=== PATIENT | male | born 1995 | race Caucasian/White ===

== ENCOUNTER 2025-01-16 08:00 | Outpatient (CLI) | payer BC, SELFPAY ==
--- OUTSIDE RECORDS SUMMARY | 2023-01-18 03:45 | XMS_ITS | Continuity of Care Document ---
Author Organization [facility] Address [address] [place] [address] Phone Care Team Providers Care Cardiac Rehab Nurse Name Role Phone Reeg Lyla RAM Unavailable Unavailable Medications Medication Instructions Dosage Effective Dates (start - stop) Status Comments ALPRAZOLAM (unknown strength) take 1 tablet by oral route 3 times every day Not Available - Active DRIZALMA SPRINKLE (unknown strength) take 1 capsule by oral route every day Not Available - Active Procedures Procedure Date RADEX FOOT COMPL MINIMUM 3 VIEWS 2022 POSTOP FOLLOW-UP VISIT Post Op Shoe OFFICE/OUTPATIENT VISIT NEW Advance Directives Directive Yes / No Effective Date File Name No Information Encounters Encounter Description Practice Location Reason(s) For Visit Diagnoses Date Provider Providers Copied on Encounter [facility] , [address], [place], [address], [place] tel:[phone] [facility] [place] Closed nondisplaced fracture of fifth metatarsal bone of left foot with routine healing, subsequent encounterPain in left foot 3 Reeg Lyla. [address], [place], [place], [id number] . tel: [phone] Referring Provider: Carlos Constantino, [address] [place] [address] [address], [place], [address]. tel:[phone] OFFICE/OUTPAT IENT VISIT NEW [facility] , [address], [place], [address], [place] tel:[phone] [facility] [place] Body mass index [BMI] 50.0-59.9, adultClosed nondisplaced fracture of fifth metatarsal bone of left foot, initial encounter 3 Bo Robertson [address], [place], [place], [id number] . tel: [phone] Referring Provider: Wilber Khan [facility] [address], [place], [address]. tel:[phone] Family History Family Member Type Diagnosis Age At Onset Mother Problem Alive and well Sister Problem Alive and well Father Problem Alive and well Payers Payer name Insurance type Covered constitution party ID Authoriza tirenetta(s) Blue Access PPO E2 OT [id number] Social History Type Description Quantity Date Captured Comments Alcohol Use Details Unknown Caffeine Use Details Unknown Tobacco Use Status No Information Smoking Status No Information Sex Male Chief Complaint And Reason For Visit No Information Reason For Referral Reason For Referral No Information Plan Of Treatment Date Type Action Status Referral Ordered: RADEX FOOT COMPL MINIMUM 3 VIEWS LT ordered History Of Present Illness Encounter Date Complaint History Of Prese nt Illness No Information Functional Status Date Functional Assessmen t No Information Instructions Date Instruction Additional Infor mation Report increased iman n, swelling, numbness or discoloration. Related to Closed nondisplaced fracture of fifth metatarsal bone of left foot with routine healing, subsequent encounter Use as directed Related to Close d nondisplaced fracture of fifth metatarsal bone of left foot with routine healing, subsequent encounter Giving encouragement to exercise Related to Body mass index [BMI] 50.0-59.9, adult Assessments Type Assessment Date assessment Closed nondisplaced fracture of fifth metatarsal bone of left foot with routine healing, subsequent encounter assessment Pain in left foot Patient Care Teams Name Effective Dates (start - stop) Status Members No Information
--- OUTSIDE RECORDS SUMMARY | 2024-04-21 08:45 | XMS_ITS | Continuity of Care Document ---
Author Organization [facility] Address [address] [place] [address] Phone Care Team Providers Care Color Shop Helper Name Role Phone Herbert Shah MD, MD Unavailable Unavailable Allergies, Adverse Reactions, Alerts Substance Reaction Status Criticality No Known Allergies Active No Inform ation Medications Medication Instructions Dosage Effective Dates (start - stop) Status Comments meloxicam 15 mg tablet take 1 tablet by oral route every day 1 po daily 15 MG - Active Voltaren Arthritis Pain 1 % topical gel - Active diazepam 10 mg tablet - Active duloxetine 20 mg capsule,delayed release - Active Procedures Procedure Date X-ray exam shoulder complete, minimum 2 views Office/outpatient visit,est, mod 2023 X-ray exam shoulder complete, minimum 2 views Office/outpatient visit,est, mod 2023 MRI Upper extr joint, w/o contrast X-ray exam shoulder complete, minimum 2 views BMI Documented Above Normal Limit F/U Pl an Doc Office/outpatient visit,new, mod 2023 Advance Directives Directive Yes / No Effective Date File Name No Information Encounters Encounter Description Practice Location Reason(s) For Visit Diagnoses Date Provider Providers Copied on Encounter Office/outpat ient visit,est, mod [facility], [address], [place], [place], [id number], [place] tel:[phone] [facility] Pain in right shoulder Pablo Godinez. [address] [facility], [place], [place], [id number], [place]. tel:[phone] Referring Provider: Herbert Shah MD S, [facility] [facility] [address], [place], [address] . tel:[phone] Office/outpat ient visit,[facility], [address] [place] [address], [place], [id number], tel:[phone] [facility] right shoulder (chief complaint) Pain in right shoulder Pablo Godinez. [address] [place] [address] [address], [place], [place], [id number], [place]. tel:[phone] Referring Provider: Herbert Shah MD S, [address] [facility] [address], [place], [address] . tel:[phone] [facility], [address] [place] [address], [id number], [place] tel:[phone] [facility] Pain in right shoulder [facility]. [address] [place] [address], [address] , [place], [place], [id number], [place]. tel:[phone] Referring Provider: Herbert Zamora, [address] [place] [address] [address], [place], [address] . tel:[phone] Office/outpat ient visit,[facility], [address] [place] [address], [id number], [place] tel:[phone] [facility] right shoulder (chief complaint) Pain in right shoulder Pablo Godinez. [address] [place] [address] [address], [place], [place], [id number], [place]. tel:[phone] Family History Family Member Type Diagnosis Age At Onset Father Problem (finding) Cancer, unknown Immunizations Vaccine Date Status Comments Pneumo (2 yrs or older)(PPV) not administ ered Source: Source Unspecified influenza, injectable, quadrivalent, (3 years or older) not administered Source: Source Unspe cified Payers Payer name Insurance type Covered libertarian ID Vicenta barrow(s) Britt Rodney [facility] [id number] Social History Type Description Quantity Date Captured Comments Alcohol Use Details Unknown Caffeine Use Details Unknown Tobacco Use Status Smoking Status No Information Non-Smoking Tobacco Use Details : No Details Available : No Details Available Sex Male Chief Complaint And Reason For Visit No Information Reason For Referral Reason For Referral No Information Plan Of Treatment Date Type Action Status Referral Ordered: X-ray exam shoulder complete, minimum 2 views RT ordered Referral Ordered: MRI Upper extr joint, w/o contrast RT shoulder Appointment date/timeframe: 03/17/2024 ordered Referral Ordered: X-ray exam shoulder complete, minimum 2 views RT shoulder ordered History Of Present Illness Encounter Date Complaint History Of Prese nt Illness right shoulder Jermaine returns fo r MRI right shoulder results right shoulder Jermaine presents w ith right shoulder pain DOI 03/03/2024 Functional Status Date Functional Assessmen t No Information Instructions Date Instruction Additional Infor mation No Information Assessments Type Assessment Date assessment Pain in right shoulder Patient Care Teams Name Effective Dates (start - stop) Status Members No Information
--- OUTSIDE RECORDS SUMMARY | 2025-01-16 08:21 | XMS_ITS | Clinical Summary ---
Author Organization [facility] Address [address] [facility] [place] [address] Care Team Providers Care Airframe And Powerplant Technician Name Role Phone Modesto Velásquez MD Primary Care Provider [phone] [facility],non-owned Affiliates and Associated Physician Practices is amultiple site organization consisting of ambulatory clinics and hospital sitesin [place], [place], [place]. This disclosure is being madepursuant to the Care Everywhere program and may not contain all information available regarding this patient. Last updated 18.[facility] Allergies No known active allergies Medications * Be aware that medications may not be up to date on this document. Alwaysverify current medications with the patient. PARoxetine (PAXIL) 10 MG tablet Take 10 mg by mouth once daily Active MYRBETRIQ 25 MG tabletIndication s:Elevated liver enzymes Take 25 mg by mouth once daily 11 11/01/2017 Active Active Problems Problem Noted Date Diagnosed Date Elevated liver enzymes 11/24/2017 Overview (11/24/2017): [place] 06/03/2016 Fatty liver and hepatomegaly 19 cm Anxiety 11/24/2017 Social History Tobacco Use Types Packs/Day Years Used Date Smoking Tobacco: Every Day Cigarettes Smokeless Tobacco: Never Tobacco Cessation:Ready to Q uit: No; Counseling Given: Yes Alcohol Use Standard Drinks/Week Comments No 0 (1 standard drink = 0.6 oz pur e alcohol) Sex and Gender Information Value Date Recorded Sex Assigned at Not on file Legal Sex Male 6:08 AM EEO OFFICER Gender Identity Not on file Sexual Orientation Not on file Last Filed Vital Signs Vital Sign Reading Time Taken Comments Blood Pressure 146/89 11/24/2017 8:21 AM CDT Pulse 98 11/24/2017 8:21 AM CDT Temperature 36.7 C (98 F) 11/24/2017 8:21 AM CDT Respiratory Rate 16 10/13/2017 2:28 PM CDT Oxygen Saturation 100% 11/24/2017 8:21 AM CDT Inhaled Oxygen Concentration - - Weight 84.4 kg (186 lb) 11/24/2017 8:21 AM CDT Height 177.8 cm (5' 10) 11/24/2017 8:21 AM CDT Body Mass Index 26.69 11/24/2017 8:21 AM CDT Plan of Treatment Health Maintenance Due Date Last Done Comments HIV SCREENING 02/26/2008 DTAP/TDAP/TD VACCINES (1 - Tdap) 02/26/2012 HEPATITIS B VACCINE (1 of 3 - 19+ 3-dose series) 02/26/2012 PNEUMOCOCCAL VACCINE (1 of 2 - PCV) 02/26/2012 HPV VACCINE (1 - 3-dose SCDM series) 02/26/2020 DEPRESSION SCREENING 04/26/2024 COVID-19 VACCINE (1 - 2023-2 5 season) 2024 INFLUENZA VACCINE (#1) 2024 ZOSTER VACCINE (1 of 2) 2043 HEPATITIS C SCREENING Completed 11/24/2017 HIB VACCINE Aged Out No longer eligi ble based on patient's age to complete this topic MENINGOCOCCAL (Group B) VACC INE SHARED DECISION-MAKING Aged Out No longer eligibl e based on patient's age to complete this topic MENINGOCOCCAL GROUPS A/C/Y/W VACCINE Aged Out No longer eligible b ased on patient's age to complete this topic Procedures Procedure Name Priority Date/Time Associated Diagnosis Comments HEPATITIS C AB SCREEN RFLX NAAT QUANT Routine 11/24/2017 9:57 AM CDT Elevated liver enzymes from Last 3 Months or Most Recently Relevant to Health Maintenance Results * HEPATITIS C AB SCREEN RFLX PCR QUANT (11/24/2017 9:57 AM CDT) Hepatitis C Antibody Non-react emerson Non-reac tive 11/24/2017 1:03 PM CDT [facility] Comment: Hepatitis C Antibody screen indicates no serologic evidence of past or current infection with Hepatitis C Virus. Patients with unexplained liver disease who are immunocompromised or suspected of having acute Hepatitis C infection may benefit from Nucleic Acid Test (SEFERINO) for Hepatitis C Viral RNA to confirm Hepatitis C status. Blood BLOOD SPECIMEN / Unknown Lab Venipuncture / Unknown 11/24/2017 9:57 AM CDT 11/24/2017 11:18 AM CDT us Eliot Barr MD LAB - CHEMISTR Y ORDERABLES Final Result [address] [phone] from Last 3 Months or Most Recently Relevant to Health Maintenance Insurance [place] [address] ANTHEM ANTHEM Care Teams Airframe And Powerplant Technician Relationship Specialty Start Date End Date Modesto Velásquez MD PCP - General Internal Medicine 10/13/17
--- OUTSIDE RECORDS SUMMARY | 2025-01-16 08:21 | XMS_ITS | Clinical Summary ---
Author Organization [facility] Address [address] [place] [address] Care Team Providers Care Newspaper Copy Editor Name Role Phone Hermes Musa MD Primary Care Provider [phone] Allergies No known active allergies Medications diazePAM (VALIUM) 5 mg tablet Take 1 tablet (5 mg total) by mouth 2 (two) times a day Active DULoxetine DR (CYMBALTA) 30 mg capsule Take 1 capsule (30 mg total) by mouth daily Active diclofenac DR (VOLTAREN) 75 mg EC tablet Take 1 tablet (75 mg total) by mouth 2 (two) times a day 60 tablet 03/03/2024 Active Social History Tobacco Use Types Packs/Day Years Used Date Smoking Tobacco: Never Assessed Personal Safety Answer Date Recorded Have you ever been in or are you currently in a harmful physical or emotional relationship or is someone making you feel afraid or unsafe? Denies 03/03/2024 Sex and Gender Information Value Date Recorded Sex Assigned at Not on file Legal Sex Male 6:55 PM COMMERCIAL DESIGNER Gender Identity Not on file Sexual Orientation Not on file Last Filed Vital Signs Vital Sign Reading Time Taken Comments Blood Pressure 143/89 03/03/2024 10:18 PM COMMERCIAL DESIGNER Pulse 119 03/03/2024 10:18 PM COMMERCIAL DESIGNER Temperature 36.5 C (97.7 F) 03/03/2024 10:18 PM COMMERCIAL DESIGNER Respiratory Rate 16 03/03/2024 10:18 PM COMMERCIAL DESIGNER Oxygen Saturation 96% 03/03/2024 10:18 PM COMMERCIAL DESIGNER Inhaled Oxygen Concentration - - Weight 84.4 kg (186 lb) 03/03/2024 10:18 PM COMMERCIAL DESIGNER Height 175.3 cm (5' 9) 03/03/2024 10:18 PM COMMERCIAL DESIGNER Body Mass Index 27.47 03/03/2024 10:18 PM COMMERCIAL DESIGNER Plan of Treatment Health Maintenance Due Date Last Done Comments Depression Screening 1993 Hepatitis C Screening 1993 DTaP/Tdap/Td Vaccine (1 - Tdap) 02/26/2004 Varicella Vaccines (1 of 2 - 13+ 2-dose series) 2006 Hepatitis B Screening 2011 Regular Well Visit/Exam 18-64 2011 HPV Vaccines (1 - 3-dose SCD M series) 02/26/2020 Covid-19 Vaccine (3 - 2024-2 6 season) 2024 04/29/2021, 09/14/2020 Influenza Vaccine (#1) 2024 Pneumococcal vaccine <65 Aged Out No longer eligible based on patient's age to complete this topic Insurance [employer] Care Teams Newspaper Copy Editor Relationship Specialty Start Date End Date Hermes Musa MD PCP - General Family Practice 03/03/24
--- NOTE | 2025-01-30 16:29 | P.SLEEP_ITS ---
Sleep Study - Home Unattended Date of Study: 01/09/25 Ordering Provider: Hermes Musa MD Interpreting Provider: Lizette Stovall, DO Home Sleep Study Type: Watch PAT Height: 1.78 m Weight: 83.915 kg Body Mass Index: 26.5 Neck Circumference (inches): 16 [place]: 4 Reason for Sleep Study Loud snoring, daytime hypersomnia Sleep History The patient is a 29-year-old male that had a sleep study ordered by his primary care physician for evaluation of sleep apnea. The patient admits to snoring loudly, excessive daytime sleepiness, interruptions in breathing while asleep and trouble falling asleep. He does choke or gasp at night. He does have trouble breathing on his back. He denies morning headaches. He denies having a dry or sore mouth /throat in the morning. He denies nocturnal heartburn. He denies nocturia. He denies having difficulty staying asleep. He denies having difficulty returning to sleep if he wakes up throughout the night. He does use of hypnotics or sedatives. He does feel anxious about sleep. He denies feeling tired or sleepy during the day. He does feel tired in the morning. He denies having the urge to fall asleep during the day. He denies feeling drowsy while driving. He denies sleep paralysis, cataplexy and hypnagogic/ hypnopompic hallucinations. He denies clenching or grinding his teeth. He denies kicking or jerking his legs excessively. He denies having a restless feeling in his legs. He goes to bed at 9:45 p.m. on work days and at 11:45 p.m. on his days off. It takes him 90 minutes to fall asleep on work days and 45 minutes on his days off. He gets 6 hours of sleep on work days and 8 hours on his days off. His sleep is somewhat restorative on days off. He denies taking any planned naps. He denies dream enactment behavior. He denies sleep walking. He denies consuming any caffeinated beverages throughout. He denies tobacco use. He consumes more than 3 alcoholic beverages 1-2 nights per week. He denies exercising on a regular basis. [facility] Family History Family History Father Family history of malignant neoplasm Social History Social History Smoking packs per day: 0.5 Smoking cigarettes per day: 10.0 Years smoked: 4 Smoking pack-years: 2.00 Smoking status: Former smoker Tobacco type: cigarettes Second hand tobacco smoke exposure: No Smoking end date: 04/26/20 Alcohol intake: current Drinks per week: 10 Alcohol use details: social Substance use: never Substance use type: does not use Medications Home Medications ?Medication ?Instructions ?Recorded ?Confirmed ?Type duloxetine 30 mg capsule,delayed 30 mg PO DAILY #90 ca ps 12/11/24 Rx release diazepam 5 mg tablet (Valium) 5 mg PO BID PRN anxiety #60 tabs 01/09/25 Rx buprenorphine HCl 2 mg sublingual 2 mg sublingual KRIS Y #7 tabs 01/15/25 Rx tablet Sleep Procedure The sleep study was completed using Watch-SitesT a technically adequate device with seven channels: peripheral arterial tone, actigraphy, body position, snore, respiratory movement, pulse oximetry, sleep staging, and heart rate. Prior to using the device, the patient received verbal and written instructions for its application and was provided with the help desk phone number for additional telephonic instruction with 24-hour availability of qualified personnel to answer questions. The study was scored using [facility] guidelines. Sleep Architecture The total recording time is 9 hrs, 58 min. The total sleep time is 8 hrs, 55 min. Sleep latency is 28 minutes. REM latency is 29 minutes. The patient had 5 episodes of waking. Sleep architecture shows 20.3% deep sleep, 61.2% light sleep, and (as % Total Sleep Time) showed NREM (Light 61.2%; Deep 20.3%), and a 18.6% stage REM. The patient spent 80.2% of total sleep time in the supine position. Sleep efficiency was 89.46. Respiratory Analysis The overall AHI (pAHI 4%:) is 6.4. The overall AHI (pAHI 3%:) is 11.2. The central AHI is 0.9. The AHI was 10.1 in NREM and 15.9 in REM sleep. The AHI was 11.4 in Supine and 10.3 in Non-supine sleep. Percent of Leland Meyer re spirations is 0.0. Oximetry Data The oxygen desaturation index (BRANDON 4%:) is 3.3. The mean saturation is 95%, and the lowest saturation is 88%. Time spent with saturation < 88% is 0.1 minutes. Snoring Profile Snoring average intensity is 43 dB. The patient snored above 45 decibels for 111.6 minutes, 20.8% of sleep time. Cardiac Profile The average pulse rate is 65 beats per minutes. The lowest pulse rate is 40 bpm. The highest pulse rate reported is 94 bpm. Atrial fibrillation was not detected. Premature beats occur <0.1 per minute. Assessment and Plan Assessment and Plan (1) NICOLAS (obstructive sleep apnea): Code(s): G47.33 - Obstructive sleep apnea (adult) (pediatric) Status: Acute Assessment and Plan: The patient had an overall AHI of 6.4 with desaturation down to 88%. This is consistent with mild sleep apnea. Due to the patient's anxiety, he qualifies for treatment. I recommend that the patient be prescribed AutoPAP 5-15 cm H2O, CPAP mask/filters/tubing and heated humidity. A mandibular advancement device is also an acceptable treatment option. This should be used with all episodes of sleep.? Compliance should be reviewed within 31-90 days of starting therapy for usage greater than 4 hours per night greater than 70% of the nights. The patient should be asked about symptoms such as?excessive daytime sleepiness, quality of sleep, decreased nocturia, increased?mental functioning such as memory, mood, and concentration. Data The data obtained during this sleep study is adequate for interpretation. Certification This sleep study has been reviewed by a board certified sleep medicine physician.
[2025-01-31 12:20] VITALS: BMI 26.5
== END 2025-01-18 09:57 | disposition home or self-care (01) ==
LOC: ANHCSM 08:05
PROVIDERS: PCP Family Medicine; Visit Provider Family Medicine
DX: G47.33 Obstructive sleep apnea (adult) (pediatric) (principal); R06.83 Snoring; F39 Unspecified mood [affective] disorder
CPT/HCPCS: 95800